=== PATIENT | male | born 1970 | race Caucasian/White ===

== ENCOUNTER 2019-02-12 16:19 | Inpatient (IN) | payer MEDICARE, MEDICAID ==
[~2019-02-12] VITALS: Ht 180.3 cm; Wt 93.7 kg
[2019-02-12] MEDS ORDERED: ZOLPIDEM TARTRATE 10 MG TABLET PO PRN (16:30)
[2019-02-12] MEDS: LORazepam 2 MG TABLET PO PRN (17:10)
[2019-02-12 17:19] VITALS: BP 143/73
[2019-02-12] MEDS ORDERED: MAG HYDROX/AL HYDROX/SIMETH ES 30 ML SUSPENSION UDCUP PO PRN (17:30)
[2019-02-12] MEDS ORDERED: LOPERAMIDE HCL 2 MG CAPSULE PO PRN (17:30)
[2019-02-12] MEDS ORDERED: PETROLATUM,WHITE 28 GM JELLY TP PRN (17:30)
[2019-02-12] MEDS ORDERED: CloNIDine HCL 0.1 MG TABLET PO PRN (17:30)
[2019-02-12] MEDS ORDERED: IBUPROFEN 400 MG TABLET PO PRN (17:30)
[2019-02-12] MEDS ORDERED: ALBUTEROL SULFATE HFA 90 MCG/PUFF 8 GM INHALER IH PRN (17:30)
[2019-02-12] MEDS ORDERED: ONDANSETRON HCL 4 MG TABLET PO PRN (17:30)
[2019-02-12] MEDS ORDERED: GuaiFENesin/D-METHORPHAN [SUGAR-FREE] 200-20MG/10 ML SYRUP UDCUP PO PRN (17:30)
[2019-02-12] MEDS ORDERED: NICOTINE 14 MG/24 HOUR PATCH TD PRN (17:30)
[2019-02-12] MEDS ORDERED: ACETAMINOPHEN 325 MG TABLET PO PRN (17:30)
[2019-02-12] MEDS ORDERED: DOCUSATE SODIUM 100 MG CAPSULE PO PRN (17:30)
[2019-02-12] MEDS ORDERED: MAGNESIUM HYDROXIDE SUSPENSION 30 ML UDCUP PO PRN (17:30)
[2019-02-13 00:57] VITALS: BP 140/91
[2019-02-13 08:24] VITALS: BP 125/82
[2019-02-13 08:34] LABS: BASOPHILS % (AUTO) 0.8 % (0.0-2.0); EOSINOPHILS % (AUTO) 1.8 % (1.0-6.0); HEMATOCRIT 45.6 % (41-53); LYMPHOCYTES # (AUTO) 1.8 K/uL (1.0-4.8); LYMPHOCYTES % (AUTO) 21.2 % (22.0-44.0); MEAN CORPUSCULAR HEMOGLOBIN 29.6 pg (26.0-34.0); MEAN CORPUSCULAR VOLUME 85 fL (80-100); MONOCYTES # (AUTO) 0.5 K/uL (0.1-1.0); MONOCYTES % (AUTO) 6.2 % (2.0-9.0); NEUTROPHILS # (AUTO) 6.1 K/uL (1.8-7.7); PLATELET COUNT (AUTO) 198 K/uL (150-450); RED BLOOD CELL COUNT(AUTO) 5.38 MIL/uL (4.50-5.90); RED CELL DISTRIBUTION WIDTH 13.5 % (11.5-14.5)
[2019-02-13 09:03] LABS: HEMOGLOBIN A1C 5.1 % (4.5-6.2)
[2019-02-13 09:17] LABS: ALANINE AMINOTRANSFERASE 23 U/L (12-78); ALBUMIN 4.2 g/dL (3.4-5.0); ALKALINE PHOSPHATASE 69 U/L (46-116); ANION GAP 10 mmol/L (8-16); ASPARTATE AMINOTRANSFERASE 15 U/L (15-37); BILIRUBIN,TOTAL 0.7 mg/dL (0.1-1.0); CALCIUM, TOTAL 9.3 mg/dL (8.8-10.5); CARBON DIOXIDE 26 mmol/L (22-29); CHLORIDE 103 mmol/L (98-107); CHOL/HDL RATIO 4.8 (4.2-7.3); CHOLESTEROL 186 mg/dL (131-200); FREE T4 (FREE THYROXINE) 1.09 ng/dL (0.76-1.46); GLOMERULAR FILTR. RATE CALC > 60 mL/min (>60); GLUCOSE,RANDOM 95 mg/dL (70-110); HDL CHOLESTEROL 39 mg/dL (40-60); LDL CHOL (CALC.) 128 mg/dL (0-130); POTASSIUM 4.4 mmol/L (3.5-5.1); SODIUM SERUM 139 mmol/L (136-145); TOTAL PROTEIN, SERUM 7.1 g/dL (6.4-8.2); TRIGLYCERIDES 96 mg/dL (15-150); UREA NITROGEN, BLOOD 14 mg/dL (7-18)
[2019-02-13] MEDS: OLANZapine 5 MG RAPDIS TABLET PO SCH (13:07)
[2019-02-13 16:37] VITALS: BP 122/84
[2019-02-14 01:18] VITALS: BP 123/77
[2019-02-14] MEDS: OLANZapine 5 MG RAPDIS TABLET PO SCH (08:35)
[2019-02-14] MEDS: LORazepam 2 MG TABLET PO PRN (08:35)
[2019-02-14 09:04] VITALS: BP 125/66
[2019-02-14 17:44] VITALS: BP 125/83
[2019-02-15] MEDS ORDERED: OLAN5TAB40 PO (07:56)
[2019-02-15 08:21] VITALS: BP 126/74
[2019-02-15] MEDS: OLANZapine 5 MG RAPDIS TABLET PO SCH (08:53)
[2019-02-15 16:36] VITALS: BP 106/73
[2019-02-16 06:09] VITALS: BP 112/65
[2019-02-16] MEDS: OLANZapine 5 MG RAPDIS TABLET PO SCH (08:40)
[2019-02-16 08:51] VITALS: BP 120/68
[2019-02-16 16:00] VITALS: BP 130/76
== END 2019-02-16 16:20 | disposition home or self-care (01) | DRG 885 ==
LOC: B3A 16:29
PROVIDERS: ADMIT Psychiatry & Neurology Child & Adolescent Psychiatry; ATTEND Psychiatry & Neurology Child & Adolescent Psychiatry
DX: F25.0 Schizoaffective disorder, bipolar type (principal); G93.40 Encephalopathy, unspecified; E03.9 Hypothyroidism, unspecified; I10 Essential (primary) hypertension; F12.90 Cannabis use, unspecified, uncomplicated; F41.9 Anxiety disorder, unspecified; Z88.8 Allergy status to other drugs, medicaments and biological substances
CPT/HCPCS: 83036; 84439; 84443